=== PATIENT | male | born 1965 | race Caucasian/White ===

== ENCOUNTER 2018-03-05 13:46 | Inpatient (IN) | payer BC ==
[~2018-03-05] VITALS: Ht 190.5 cm; Wt 109.0 kg
[~2018-03-05 13:46] MED LIST: AMLODIPINE BESYL5 MG PO; FAMOTIDINE20 MG PO; LEVAQUIN250 MG PO; LISINOPRIL10 MG PO; PANTOPRAZOLE SO40 MG PO; SERTRALINE HCL50 MG PO; SODIUM BICARBO650 MG PO; TRICOR48 MG PO; ULTRAM50 MG PO; ZOLOFT50 MG PO
[2018-03-05 14:47] LABS: BASOPHILS # (AUTO) 0.1 (0.0-0.1); BASOPHILS % 1.4 % (0.0-1.0); EOSINOPHILS # (AUTO) 0.4 (0.0-0.4); EOSINOPHILS % 4.7 % (0.0-6.0); HEMATOCRIT 43.3 % (38.2-49.6); HEMOGLOBIN 15.9 g/dL (14.0-18.0); LYMPHOCYTES # (AUTO) 2.3 (1.0-3.2); LYMPHOCYTES % 25.6 % (18.0-39.1); MEAN CORPUSCULAR HEMOGLOBIN 34.9 pg (28-32); MEAN CORPUSCULAR HGB CONC 36.7 g/dL (31-35); MEAN CORPUSCULAR VOLUME 95.2 fL (81-99); MONOCYTES # (AUTO) 0.9 (0.2-0.8); MONOCYTES % 9.4 % (4.4-11.3); NEUTROPHILS # (AUTO) 5.3 (2.1-6.9); NEUTROPHILS % 58.1 % (38.7-80.0); PLATELET COUNT 183 x10e3/uL (140-360); RED BLOOD COUNT 4.55 x10e6/uL (4.3-5.7); RED CELL DISTRIBUTION WIDTH 13.2 % (11.7-14.4)
[2018-03-05 14:57] LABS: INR 1.05; PROTHROMBIN TIME 12.9 seconds (11.9-14.5)
[2018-03-05 14:58] LABS: PARTIAL THROMBOPLASTIN TIME 27.7 seconds (23.8-35.5)
[2018-03-05 15:10] LABS: ALBUMIN 3.9 g/dL (3.5-5.0); ALBUMIN/GLOBULIN RATIO 0.7 (0.8-2.0); ANION GAP 17.6 mmol/L (8-16); CALCIUM 9.7 mg/dL (8.4-10.2); CREATININE, SERUM 2.02 mg/dL (0.72-1.25); POTASSIUM 4.6 mmol/L (3.5-5.1)
[2018-03-05 15:16] LABS: CREATINE KINASE MB 3.6 ng/mL (0-5.0)
[2018-03-05] MEDS ORDERED: LABETALOL HCL 5 MG/ML 20ML VIAL IV STA (15:22)
--- NOTE | 2018-03-05 16:15 | Diagnostic Imaging Report ---
EXAM: XR CHEST 2 VIEWS DATE: 03/05/2018 2:22 PM INDICATION: Shortness of breath COMPARISON: None FINDINGS: Lines and Tubes: None Heart and Mediastinum: Heart upper limits of normal. Mild tortuosity descending thoracic aorta. Lungs and Pleura: Mild biapical scarring. Ill-defined opacity partially tears left heart border. Bones and Soft Tissues: No acute findings. IMPRESSION: 1. Ill-defined density left lung base likely pericardial fat better seen 05/21/[address] Signed by: Dr. Raul Kirby MD on 03/05/2018 4:12 PM
[2018-03-05] MEDS ORDERED: ASPIRIN 81 MG CHEW TAB PO ONE (17:00)
[2018-03-05] MEDS: METOPROLOL TARTRATE 50 MG TAB PO SCH (18:23)
[2018-03-05] MEDS: ENOXAPARIN 30 MG/0.3 ML SYR SC SCH (18:24)
[2018-03-05 20:00] VITALS: BP 129/85
[2018-03-05] MEDS: SODIUM BICARBONATE 8.4% 100 ML in DEXTROSE 5% 1,000 ML IV SCH (20:20)
[2018-03-05 21:00] VITALS: BP 129/85
--- NOTE | 2018-03-05 21:44 | Diagnostic Imaging Report ---
EXAM: CT CHEST WO DATE: 03/05/2018 6:17 PM INDICATION: Elevated blood pressure, shortness of breath COMPARISON: None TECHNIQUE: Multidetector CT scanning of the chest was performed. Coronal and sagittal multiplanar reformations were obtained. CT low dose techniques were utilized, as applicable. IV Contrast: 0 ml Isovue 370/300 FINDINGS: LUNGS AND PLEURA: Central airways are patent. Minimal bibasilar atelectasis and/or scarring. No consolidations or edema. No effusions or pneumothorax. HEART, MEDIASTINUM, VESSELS: Heart size is normal with prominent pericardial fat pads. Normal great vessel caliber. Trace atherosclerotic calcification. No pericardial effusion. No adenopathy. UPPER ABDOMEN: Unremarkable. MUSCULOSKELETAL: Scattered degenerative changes and mild anterior wedging of T8. IMPRESSION: No acute abnormality. Signed by: Dr Gisela Brown MD on 03/05/2018 9:41 PM
--- NOTE | 2018-03-05 22:40 | History and Physical ---
He is a 52-year-old male patient of mine, presented to the emergency room with a complaint of shortness of breath of 1-day duration. HISTORY OF PRESENT ILLNESS: Mr. Baron Gray is a 52-year-old male patient with no significant medical history as the patient has no significant continuous outpatient care. The patient had last seen me 2 years ago in . He has not had any regular care. The patient has presented today with a complaint of chest pain, shortness of breath and left-sided arm numbness and tingling and weakness and the patient was found to have hypertension also in the emergency room. The patient is not . PAST MEDICAL HISTORY: Hypertension. The patient had some kind of kidney problem, but no chronic kidney problems. ALLERGIES: Denies. SOCIAL HISTORY: The patient smokes and uses alcohol occasionally. FAMILY HISTORY: Hypertension, coronary artery disease. REVIEW OF SYSTEMS: Chest pain, shortness of breath on exertion and left arm numbness, tingling. No headache. No nausea, vomiting. No diarrhea. PHYSICAL EXAMINATION GENERAL: He is a middle-aged male patient, lying in his bed, not in any acute distress. VITAL SIGNS: Temperature 98, pulse rate 90, respiratory rate 20, blood pressure 160/95. HEENT: Normocephalic, atraumatic. No JVD. No lymphadenopathy. LUNGS: Bilateral equal air entry. No rales, no rhonchi. HEART: S1, S2. Regular. ABDOMEN: Soft. Bowel sounds are present. NEUROLOGICAL: No focal neurological deficit. LABORATORY EXAMINATION: The patient has very high protein and high globulin. ADMITTING IMPRESSION/DIAGNOSES 1. Atypical chest pain/chest pain syndrome. 2. Hypertension. 3. Acute renal insufficiency with creatinine of 2. ASSESSMENT AND PLAN: The patient was admitted with above diagnosis. Will do serial EKG, cardiac enzymes. Obtain CT chest and D-dimer level. Give patient Lovenox, IV fluids and metoprolol for blood pressure control and will obtain cardiology and renal consultation. Job#: [id number]
[2018-03-05 22:45] LABS: CREATINE KINASE MB 2.7 ng/mL (0-5.0)
[2018-03-06] VITALS (7 sets, daily range): BP systolic 123–132; BP diastolic 85–96
--- NOTE | 2018-03-06 02:04 | Consultation ---
DATE OF CONSULTATION: March 05, 2018 CARDIAC CONSULTATION REASON FOR THE CONSULTATION: Unstable angina over unstable coronary syndrome. HISTORY: This is a 52-year-old gentleman who is known with longstanding history of hypertension, hyperlipidemia and chronic renal insufficiency. In fact, patient in 2016 was admitted to this institution with chronic renal insufficiency, acidosis. Seen by renal service. He does have history of possible hepatitis C by having positive hepatitis C antibody. He does have chronic history of peripheral neuropathy. Patient works very hard. He is physically active; however, during activity or anything, he cannot breathe and he cannot perform what he is doing. This is becoming progressively worse over the last 2 to 3 months. Patient's activity has become very limited. Today, he had prolonged chest tightness, radiating to his arm with activity. He needed to stop what he is doing. He was worried. He came to the emergency room. First set of cardiac enzyme is normal. Cardiac consultation is obtained. On admission, his BUN was at 28, creatinine of 2.02 and bicarb of 16. Cardiac symptoms as per above. Progressively worse chest pressure, chest tightness and severe shortness of breath. REVIEW OF SYSTEMS CARDIAC: As per above. PULMONARY: As per above. No recent travel. No pleuritic chest pain. GI: No hematemesis. No melena. : No hematuria. No dysuria. MUSCULOSKELETAL: Aches and pain. NEUROLOGICAL: Severe peripheral neuropathy of the lower extremities. GENERAL: No fever. No chills. SOCIAL HISTORY: He is . He is a smoker. He in not alcohol drinker. He works in mechanics. PAST MEDICAL HISTORY 1. Acute tubular necrosis in 2016. 2. Appendectomy. 3. Lumbar spine surgery. 4. Right foot wart. 5. Peripheral neuropathy. 6. History of hepatitis C positive antibody. FAMILY HISTORY: Hypertension, diabetes mellitus and coronary artery disease in the family. PHYSICAL EXAMINATION VITALS: Height of 6 feet 3 inches, weight of 216 pounds. Blood pressure 140/100. Heart rate of 90. Respiratory rate of 18. Temperature 98 degrees Fahrenheit. HEENT: Pupils are reactive. NECK: No elevation of jugular venous pulsation. No bruit. CHEST: Clear to auscultation and percussion. HEART: PMI in 5th left intercostal space. Normal 1st and 2nd heart sounds. ABDOMEN: Soft with good bowel sounds. EXTREMITIES: No cyanosis. No clubbing. No edema. NEUROLOGIC: Tingling and numbness of the lower extremity. There are a few changes on the feet, mainly the right foot. HOME MEDICATIONS 1. Norvasc 2.5 mg a day. 2. TriCor 48 mg a day. 3. Lisinopril 20 mg a day. 4. Protonix 40 mg a day. 5. Zoloft 50 mg a day. ALLERGY: CODEINE. CURRENT LABORATORY DATA: White blood cell count of 9.1, hemoglobin 15.9, hematocrit 43%, platelet of 183,000. BUN of 28, creatinine of 2.02, bicarb of 16. PT of 11 seconds, PTT of 27 seconds. D-dimer of 0.54. IMPRESSION AND PLAN 1. Chest pain, very plausible to be angina, very typical symptoms with several risk factors. 2. Hypertension. 3. Hyperlipidemia. 4. Chronic renal insufficiency. 5. Metabolic acidosis. 6. Peripheral neuropathy. 7. History of hepatitis C antibiotic positive. Cardiac-an, plan for serial cardiac enzymes. I will start patient on IV fluid. Will start patient on aspirin. Beta rosa is good medication for the time being. Will schedule patient for nuclear stress test; however, if the cardiac enzymes are positive, will proceed directly with cardiac catheterization. All these discussed and explained to the patient. Questions are answered. Will follow patient's progression with you and would like to thank you for your kind referral. Job#: [id number] GERMÁN
[2018-03-06] MEDS: METOPROLOL TARTRATE 50 MG TAB PO SCH ×3 (05:07→21:20)
[2018-03-06 05:16] LABS: BASOPHILS # (AUTO) 0.1 (0.0-0.1); BASOPHILS % 1.3 % (0.0-1.0); EOSINOPHILS # (AUTO) 0.4 (0.0-0.4); EOSINOPHILS % 6.3 % (0.0-6.0); HEMATOCRIT 39.1 % (38.2-49.6); HEMOGLOBIN 14.4 g/dL (14.0-18.0); LYMPHOCYTES % 31.7 % (18.0-39.1); MEAN CORPUSCULAR HEMOGLOBIN 35.8 pg (28-32); MEAN CORPUSCULAR HGB CONC 36.8 g/dL (31-35); MEAN CORPUSCULAR VOLUME 97.3 fL (81-99); MONOCYTES # (AUTO) 0.8 (0.2-0.8); MONOCYTES % 12.8 % (4.4-11.3); NEUTROPHILS # (AUTO) 2.9 (2.1-6.9); NEUTROPHILS % 47.1 % (38.7-80.0); PLATELET COUNT 146 x10e3/uL (140-360); RED BLOOD COUNT 4.02 x10e6/uL (4.3-5.7); RED CELL DISTRIBUTION WIDTH 13.2 % (11.7-14.4)
[2018-03-06 06:12] LABS: ALBUMIN 3.1 g/dL (3.5-5.0); ALBUMIN/GLOBULIN RATIO 0.6 (0.8-2.0); ANION GAP 18.3 mmol/L (8-16); CALCIUM 9.4 mg/dL (8.4-10.2); CREATININE, SERUM 1.72 mg/dL (0.72-1.25); POTASSIUM 4.3 mmol/L (3.5-5.1)
[2018-03-06 06:14] LABS: CHOL/HDL RATIO 14.5 (3.9-4.7); CHOLESTEROL 304 MD/DL (0-199); HDL CHOLESTEROL 21 MG/DL (40-60)
[2018-03-06 06:23] LABS: TRIGLYCERIDES 1983 MG/DL (0-149)
[2018-03-06] MEDS: SODIUM BICARBONATE 8.4% 100 ML in DEXTROSE 5% 1,000 ML IV SCH ×2 (06:28→20:54)
[2018-03-06 06:33] LABS: THYROID STIMULATING HORMONE 2.89 uIU/mL (0.350-4.940)
[2018-03-06 06:38] LABS: CREATINE KINASE MB 1.6 ng/mL (0-5.0)
[2018-03-06] MEDS ORDERED: REGADENOSON 0.4 MG/5 ML SYR IV ONE (10:24)
[2018-03-06] MEDS ORDERED: CLOPIDOGREL BISULFATE 75 MG TAB PO ONE (12:45)
--- NOTE | 2018-03-06 15:28 | Cardiology Report ---
DATE OF STUDY: LEXISCAN NUCLEAR CARDIAC STRESS TEST TECHNICAL DETAILS: This is a resting-stress protocol. For the resting images, a total of 11 millicuries of Myoview given. Half an hour after that proper SPECT imaging and scanning were done. For the stress images, patient received 0.4 mg of Lexiscan, followed by the injection of 33 millicuries of Myoview. Half an hour after that repeat scanning and proper SPECT imaging were done. RESULTS A. Hemodynamics: patient tolerated Lexiscan infusion with no complication. Heart rate remained stable in the 70s/ min. Blood pressure at 110/80. B. Nuclear imaging 1. Myocardial perfusion: A. Resting images showed smooth distribution of the isotope in all segments except for part of the anterior wall. B. Stress images again showed almost similar finding with a smooth distribution of isotopes in all segments except part in the anterior wall. 2. Heart volume: End diastolic volume 111 ml. and end systolic volume of 56 ml. Left ventricular ejection fraction of 50%. 3. Segmental wall motion. The left ventricle appears to be normal in size and systole and diastole with normal contractility. Ejection fraction of 50%. IMPRESSION 1. Abnormal nuclear stress test showing mixed ischemic and more of a scar in the anterior segments. 2. Relatively preserved left ventricular systolic function at 50%. RECOMMENDATION: Case to be discussed with the patient. We will try medical therapy unless if patient continues to have symptoms. However, we will revisit with the patient and discuss the results and make a decision. Job#: [id number] VAS MTDDana
[2018-03-06] MEDS ORDERED: ENOXAPARIN 30 MG/0.3 ML SYR SC SCH (17:00)
[2018-03-06] MEDS ORDERED: ACETYLCYSTEINE 20% INHAL SOLN 30 ML VIAL PO SCH (18:00)
[2018-03-06] MEDS: ENOXAPARIN 30 MG/0.3 ML SYR SC SCH (18:22)
[2018-03-06] MEDS: ACETYLCYSTEINE 20% INHAL SOLN 30 ML VIAL PO SCH ×2 (18:22→23:30)
--- NOTE | 2018-03-06 19:48 | Consultation ---
DATE OF CONSULTATION: March 06, 2018 HISTORY OF PRESENT ILLNESS: A 52-year-old gentleman who is currently admitted here at [facility]. Renal has been consulted by Dr. Lopez for management of kidney failure. Patient claims he has had kidney problems in the past. Never saw a kidney doctor in the office. Has history of hypertension. Has been relatively noncompliant. Takes about 5 to 5 Aleve a day. He used to take "a whole lot more" 2-3 years ago, but he has cut down to 3 pills a day now. Previously, he said he did cocaine and was "addicted to Soma and Lorcet", but for the last 2 years he has stopped taking any of those medications as well as cocaine and just takes Aleve. He also takes 2 Aleve PM to sleep. He was found to have a creatinine of 2.0 with a bicarbonate of 16. This was on March 05. The patient had a total protein of 8.7 with a globulin 5.6. Serum urine protein electrophoresis has been sent. Dr. Richter has seen the patient for chest pain and apparently patient is scheduled for cardiac cath tomorrow. I discussed with patient about the spectrum of contrast-induced nephropathy ranging from mild to moderate renal dysfunction to severe kidney failure requiring temporary or permanent dialysis. Patient understands all the risks and wants to proceed with cardiac cath. He is also found to have significantly elevated triglyceride of 193. Cholesterol 304. He smokes about a pack and a half a day, and drinks twice a week, he says. CURRENT MEDICATIONS: Patient is on Mucomyst. He is on IV bicarbonate drip and Plavix, enoxaparin, metoprolol. For dose schedule please see MAR. SOCIAL HISTORY: As above. PHYSICAL EXAMINATION: GENERAL: Patient found to be awake, alert and lying supine. No apparent distress. VITALS: Blood pressure of 130/60, pulse rate 80. Respiratory rate 14. HEAD AND NECK: Cornea clear. Oral mucosa moist. Neck veins flat. LUNGS: Harsh vesicular breath sounds, relatively clear. HEART: S1 and S2 audible. ABDOMEN: Otherwise soft and nontender but is distended. LOWER EXTREMITY EXAMINATION: Shows chronic skin changes. No edema. IMPRESSION: 1. Distal renal tubular acidosis, acute kidney injury, possibly acute tubular necrosis, underlying CKD III. I suspect underlying chronic kidney disease stage III with a prerenal component. 2. History of tobacco addiction. 3. Chronic NSAID use. I 4. Mild hyponatremia. 5. TSH within normal limits. CK of 102 and repeat 89. 6. Serum urine protein electrophoresis pending for the globulin gap. Calcium level 9.4. 7. Volume status stable. 8. Underlying hypertension. 9. 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 PLAN: Will order workup including urine protein creatinine ratio, urinalysis, kidney ultrasound. Will await serum and urine protein electrophoresis. Further recommendations to follow. Job#: [id number]
[2018-03-06 23:59] LABS: BACTERIA,URINE FEW /HPF; BILIRUBIN,URINE NEGATIVE (NEGATIVE); CLARITY,URINE CLEAR (CLEAR); COLOR,URINE YELLOW (YELLOW); KETONES,URINE NEGATIVE (NEGATIVE); LEUKOCYTE ESTERASE ,URINE NEGATIVE (NEGATIVE); NITRITE,URINE NEGATIVE (NEGATIVE); PROTEIN,URINE DIPSTICK NEGATIVE (NEGATIVE); RBC,URINE 0-5 /HPF (0-5); URINE UROBILINOGEN 0.2 mg/dL (0.2 - 1); WBC,URINE (MAN) 0-5 /HPF (0-5)
[2018-03-07] VITALS (16 sets, daily range): BP systolic 116–142; BP diastolic 76–92
[2018-03-07 00:12] LABS: TOTAL PROTEIN, URINE < 6.8 mg/dL (1-14)
[2018-03-07 02:01] LABS: CREATININE,URINE RANDOM 58.17 mg/dL (63-166)
[2018-03-07] MEDS: ACETYLCYSTEINE 20% INHAL SOLN 30 ML VIAL PO SCH ×2 (05:28→12:00)
[2018-03-07 05:40] LABS: BASOPHILS # (AUTO) 0.1 (0.0-0.1); BASOPHILS % 1.3 % (0.0-1.0); EOSINOPHILS # (AUTO) 0.4 (0.0-0.4); EOSINOPHILS % 6.6 % (0.0-6.0); HEMOGLOBIN 13.6 g/dL (14.0-18.0); LYMPHOCYTES # (AUTO) 2.2 (1.0-3.2); LYMPHOCYTES % 36.7 % (18.0-39.1); MEAN CORPUSCULAR HGB CONC 35.8 g/dL (31-35); MONOCYTES # (AUTO) 0.7 (0.2-0.8); MONOCYTES % 11.1 % (4.4-11.3); NEUTROPHILS # (AUTO) 2.6 (2.1-6.9); NEUTROPHILS % 43.6 % (38.7-80.0); PLATELET COUNT 137 x10e3/uL (140-360); RED CELL DISTRIBUTION WIDTH 12.9 % (11.7-14.4)
[2018-03-07] MEDS: SODIUM BICARBONATE 8.4% 100 ML in DEXTROSE 5% 1,000 ML IV SCH ×3 (06:03→23:22)
[2018-03-07 06:33] LABS: ALBUMIN 3.4 g/dL (3.5-5.0); ALBUMIN/GLOBULIN RATIO 0.8 (0.8-2.0); ANION GAP 14.5 mmol/L (8-16); CALCIUM 9.2 mg/dL (8.4-10.2); CREATININE, SERUM 1.62 mg/dL (0.72-1.25); POTASSIUM 4.5 mmol/L (3.5-5.1)
[2018-03-07] MEDS: METOPROLOL TARTRATE 50 MG TAB PO SCH ×2 (09:00→21:39)
[2018-03-07] MEDS ORDERED: LIDOCAINE HCL 2% LOCAL 20 ML VIAL ONE (10:29)
[2018-03-07] MEDS ORDERED: MIDAZOLAM HCL 2 MG/2 ML VIAL ONE (10:29)
[2018-03-07] MEDS ORDERED: FENTANYL CITRATE/PF 100MCG/2 ML INJ ONE (10:29)
[2018-03-07] MEDS ORDERED: HEPARIN SOD/SOD CHLORIDE 2,000 ML ONE (10:29)
[2018-03-07] MEDS ORDERED: IOPAMIDOL 370 MG/ML 200 ML INFUS..BTL INJ ONE (10:30)
[2018-03-07] MEDS ORDERED: SODIUM CHLORIDE 0.9% 1000ML 1,000 ML ONE (10:30)
--- NOTE | 2018-03-07 14:08 | Operative Report ---
DATE OF PROCEDURE: March 07, 2018 TITLE OF PROCEDURE: Left cardiac catheterization. INDICATIONS: Please refer to dictated notes. TECHNICAL DETAILS: After the usual sterile preparation and draping procedure, intravenous Versed and fentanyl given for sedation and local Xylocaine for anesthesia, a 4-Serbian sheath established in place, Elsie left 4 and RC catheter to engage the coronaries. Pigtail for left ventriculogram. At the end of the procedure, sheath was removed. Hemostasis was achieved manually. No complication. No blood loss. RESULTS A. Coronary angiogram. 1. Left main: Free of disease. 2. LAD: 40% mid LAD long lesion. 3. Circumflex coronary artery: Proximal 40% lesion giving large 1st obtuse marginal. 4. Right coronary artery: 40% proximal lesion. B. Hemodynamics: Aorta pressure 120/80. LV pressure 120/18. C. Left ventriculogram in the right anterior oblique view showed mild hypokinesis, ejection fraction at almost 50%. IMPRESSION 1. Mild coronary artery disease. 2. Left ventricular ejection fraction 50%. COMPLICATIONS: None. BLOOD LOSS: None. RECOMMENDATIONS: Medical therapy. Job#: [id number]
[2018-03-08 01:30] VITALS: BP 141/84
[2018-03-08 05:18] LABS: BASOPHILS # (AUTO) 0.1 (0.0-0.1); BASOPHILS % 1.2 % (0.0-1.0); EOSINOPHILS # (AUTO) 0.5 (0.0-0.4); EOSINOPHILS % 7.2 % (0.0-6.0); HEMATOCRIT 36.5 % (38.2-49.6); HEMOGLOBIN 14.7 g/dL (14.0-18.0); LYMPHOCYTES # (AUTO) 2.7 (1.0-3.2); LYMPHOCYTES % 40.3 % (18.0-39.1); MEAN CORPUSCULAR HEMOGLOBIN 38.6 pg (28-32); MEAN CORPUSCULAR HGB CONC 40.3 g/dL (31-35); MEAN CORPUSCULAR VOLUME 95.8 fL (81-99); MONOCYTES # (AUTO) 0.6 (0.2-0.8); MONOCYTES % 9.7 % (4.4-11.3); NEUTROPHILS # (AUTO) 2.7 (2.1-6.9); NEUTROPHILS % 40.8 % (38.7-80.0); PLATELET COUNT 154 x10e3/uL (140-360); RED BLOOD COUNT 3.81 x10e6/uL (4.3-5.7); RED CELL DISTRIBUTION WIDTH 12.8 % (11.7-14.4)
[2018-03-08 05:35] LABS: ALBUMIN 3.1 g/dL (3.5-5.0); ALBUMIN/GLOBULIN RATIO 0.5 (0.8-2.0); CREATININE, SERUM 1.6 mg/dL (0.72-1.25)
[2018-03-08 06:43] VITALS: BP 142/91
[2018-03-08 08:00] VITALS: BP 142/91
--- NOTE | 2018-03-08 08:20 | Diagnostic Imaging Report ---
EXAM: Renal Ultrasound INDICATION: \S\amie \[id number] \[id number] COMPARISON: CT abdomen and pelvis without contrast 05/21/2016 TECHNIQUE: Transverse and longitudinal images of the kidneys and bladder were obtained. FINDINGS: Right Kidney: Size: 12.3 cm, right renal cortex 1.9 cm. Appearance: Normal echogenicity. Collecting system: No hydronephrosis Stones: None Cyst/Mass: None Left Kidney: Size: 11.3 cm, left renal cortex 1.3 cm. Appearance: Normal echogenicity. Collecting system: No hydronephrosis Stones: None Cyst/Mass: None Bladder: No focal lesions. The right ureteral jet is identified. No wall thickening. Prostate: 2.6 x 1.8 x 2.3 cm (estimated volume 5.7 cc) IMPRESSION: 1. Unremarkable exam. Signed by: Dr. Josué Valenzuela M.D. on 03/08/2018 8:17 AM
[2018-03-08 08:25] VITALS: BP 138/87
[2018-03-08] MEDS: METOPROLOL TARTRATE 50 MG TAB PO SCH (09:00)
[2018-03-08] MEDS: SODIUM BICARBONATE 8.4% 100 ML in DEXTROSE 5% 1,000 ML IV SCH (09:21)
[2018-03-08] MEDS ORDERED: SODIUM BICARBO650 MG PO (12:04)
[2018-03-08 12:20] VITALS: BP 139/81
[2018-03-08 16:01] VITALS: BP 139/88
--- NOTE | 2018-03-09 01:13 | Discharge Summary ---
AUDIO CUTTING IN AND OUT IN MULTIPLE PORTIONS OF THE REPORT This patient is a 52-year-old male, patient presented with the complaint of shortness of breath and chest pain. IMPRESSIONS/DIAGNOSES 1. Chest pain syndrome. 2. Hypertension. 3. Acute renal failure. 4. Normal anion gap metabolic acidosis. 5. Type-2 distal renal tubular necrosis. HOSPITAL COURSE: Patient was admitted with the above diagnosis, Patient was started on the metoprolol. Patient had nuclear stress test was done, which was abnormal. It showed small defect The patient was taken for the heart cath. Patient found to have 50% mid LAD lesion. Patient's echocardiogram was ejection fraction was 50%-55% Patient has a 40% mid LAD long lesion and right coronary also has a 40% proximal and circumflex has a proximal 40% lesion. Patient has a high liver function tests and patient has increased globulin in the blood, so multiple myeloma diagnosis was entertained. Renal consult was done. Patient electrophoresis results are pending. Patient's cholesterol is 304 and triglyceride was 1984. Patient will be discharged home on a sodium bicarbonate tablet. toprol xl for the blood pressure and Wellbutrin for depression, and to stop smoking. disch diag CAD ANGINA ARF,CKD DISTAL RTA Job#: [id number] CQ MTDDana
[2018-03-10 18:10] LABS: ALPHA 2 GLOBULIN URINE PEP 14.9 % (.)
== END 2018-03-08 16:12 | disposition home or self-care (01) | DRG 286 ==
LOC: ER 13:54 → INTOOBSV 18:12 → ERHOLD 18:12 → OBSVTOIN 18:12 → MED/SURG2 18:36 → OBSVTOIN 03-07 16:44
PROVIDERS: ADMIT Internal Medicine; ATTEND Internal Medicine
PROC: 4A023N7 Measurement of Cardiac Sampling and Pressure, Left Heart, Percutaneous Approach (ICD-10-PCS; principal; 2018-03-07)
PROC: B2111ZZ Fluoroscopy of Multiple Coronary Arteries using Low Osmolar Contrast (ICD-10-PCS; 2018-03-07)
PROC: B2151ZZ Fluoroscopy of Left Heart using Low Osmolar Contrast (ICD-10-PCS; 2018-03-07)
DX: I25.110 Atherosclerotic heart disease of native coronary artery with unstable angina pectoris (principal); N17.0 Acute kidney failure with tubular necrosis; E87.2 Acidosis; E87.1 Hypo-osmolality and hyponatremia; I12.9 Hypertensive chronic kidney disease with stage 1 through stage 4 chronic kidney disease, or unspecified chronic kidney disease; F32.9 Major depressive disorder, single episode, unspecified; B07.0 Plantar wart; Z91.19 Patient's noncompliance with other medical treatment and regimen; F14.11 Cocaine abuse, in remission; F19.21 Other psychoactive substance dependence, in remission; Z79.1 Long term (current) use of non-steroidal anti-inflammatories (NSAID); N14.0 Analgesic nephropathy; E11.22 Type 2 diabetes mellitus with diabetic chronic kidney disease; N18.3 Chronic kidney disease, stage 3 (moderate); Z87.891 Personal history of nicotine dependence; Z79.4 Long term (current) use of insulin; Z86.19 Personal history of other infectious and parasitic diseases
CPT/HCPCS: 36415; 71046; 71250; 76770; 78452; 80053; 80061; 81001; 82550; 82553; 82570; 84156; 84165; 84166; 84443; 84484; 85025; 85379; 85610; 85730; 93005; 93017; 93306; 93458; 99284; A9502; C1766; G0378; J1650; J2001; J2250; J7030; J7070; Q9967

== ENCOUNTER 2020-10-12 13:01 | Emergency (ER) | payer BC ==
[~2020-10-12] VITALS: Ht 190.5 cm; Wt 108.9 kg
[2020-10-12] MEDS ORDERED: CIPRO500 MG PO (16:17)
[2020-10-12] MEDS ORDERED: MOTRIN200 MG PO (16:17)
[2020-10-12 16:37] VITALS: BP 136/98
== END 2020-10-12 16:40 | disposition home or self-care (01) ==
LOC: ER 13:34
DX: N50.812 Left testicular pain (principal); N45.1 Epididymitis; I10 Essential (primary) hypertension; E78.5 Hyperlipidemia, unspecified
CPT/HCPCS: 76870; 93976; 99283

== ENCOUNTER 2020-11-24 08:58 | Inpatient (IN) | payer BC ==
[~2020-11-24] VITALS: Ht 190.5 cm; Wt 102.1 kg
[~2020-11-24 08:58] MED LIST changes: +CIPRO500 MG PO; +MOTRIN200 MG PO
[2020-11-24] MEDS ORDERED: ASPIRIN 81 MG CHEW TAB PO ONE ×2 (09:15→11:15)
[2020-11-24 09:20] LABS: BASOPHILS # (AUTO) 0.1 (0.0-0.1); BASOPHILS % 1.3 % (0.0-1.0); EOSINOPHILS # (AUTO) 0.4 (0.0-0.4); EOSINOPHILS % 4.6 % (0.0-6.0); HEMATOCRIT 39.6 % (38.2-49.6); HEMOGLOBIN 13.3 g/dL (14.0-18.0); LYMPHOCYTES # (AUTO) 1.7 (1.0-3.2); LYMPHOCYTES % 19.5 % (18.0-39.1); MEAN CORPUSCULAR HEMOGLOBIN 32.2 pg (28-32); MEAN CORPUSCULAR HGB CONC 33.6 g/dL (31-35); MEAN CORPUSCULAR VOLUME 95.9 fL (81-99); MONOCYTES # (AUTO) 0.8 (0.2-0.8); MONOCYTES % 8.9 % (4.4-11.3); NEUTROPHILS # (AUTO) 5.6 (2.1-6.9); NEUTROPHILS % 64.4 % (38.7-80.0); PLATELET COUNT 223 x10e3/uL (140-360); RED BLOOD COUNT 4.13 x10e6/uL (4.3-5.7); RED CELL DISTRIBUTION WIDTH 13.5 % (11.7-14.4)
[2020-11-24 09:47] LABS: ALBUMIN 3.2 g/dL (3.5-5.0); ALBUMIN/GLOBULIN RATIO 0.7 (0.8-2.0); ANION GAP 16.9 mmol/L (8-16); CALCIUM 8.8 mg/dL (8.4-10.2); CREATININE, SERUM 1.67 mg/dL (0.72-1.25); POTASSIUM 4.9 mmol/L (3.5-5.1)
[2020-11-24 09:49] LABS: SALICYLATE < 5.0 mg/dL (0-30)
[2020-11-24 09:52] LABS: INR 0.9; PROTHROMBIN TIME 12.7 seconds (11.9-14.5)
[2020-11-24 09:53] LABS: CREATINE KINASE MB 3.4 ng/mL (0-5.0)
[2020-11-24] MEDS ORDERED: MORPHINE SULFATE INJ 4 MG/ML INJ 1ML IV STA (09:55)
[2020-11-24] MEDS ORDERED: ONDANSETRON HCL INJ 2MG/ML 2ML 2 MG/ML VIAL IV STA (09:55)
[2020-11-24 09:59] LABS: ABG HCO3 20 mmol/L (22-26); ABG PCO2 36 mmHg (35-45); ABG PH 7.36 (7.35-7.45); ABG PO2 85 mmHg (80-105); ABG TCO2 21
[2020-11-24] MEDS ORDERED: HYDRALAZINE HCL 20 MG/ML VIAL IV STA (10:35)
[2020-11-24] MEDS ORDERED: MORPHINE SULFATE INJ 4 MG/ML INJ 1ML IV PRN ×2 (10:45→14:45)
[2020-11-24] MEDS ORDERED: ONDANSETRON HCL INJ 2MG/ML 2ML 2 MG/ML VIAL IV PRN (10:45)
[2020-11-24] MEDS: SODIUM CHLORIDE 0.9% 1000ML 1,000 ML IV SCH ×2 (11:10→21:07)
[2020-11-24] MEDS ORDERED: HYDRALAZINE HCL 20 MG/ML VIAL IV PRN ×2 (11:15→11:45)
[2020-11-24] MEDS ORDERED: SODIUM CHLORIDE 0.9% 50ML 50 ML ONE (11:35)
[2020-11-24] MEDS ORDERED: IOPAMIDOL 370 MG/ML 200 ML INFUS..BTL INJ ONE (11:36)
[2020-11-24] MEDS ORDERED: DOCUSATE SODIUM 100 MG CAP PO PRN (11:45)
[2020-11-24] MEDS ORDERED: POTASSIUM CHLORIDE 20 MEQ TAB CR PO PRN (11:45)
[2020-11-24] MEDS ORDERED: DIPHENHYDRAMINE HCL 25 MG CAP PO PRN (11:45)
[2020-11-24] MEDS ORDERED: DEXTROSE 50% SYRINGE 50 ML IV PRN (11:45)
[2020-11-24] MEDS ORDERED: ACETAMINOPHEN 325 MG TAB PO PRN (11:45)
[2020-11-24 11:49] LABS: CREATINE KINASE MB 3.3 ng/mL (0-5.0)
[2020-11-24] MEDS ORDERED: MIDODRINE HCL 5 MG TABLET PO SCH (12:00)
[2020-11-24] MEDS ORDERED: MIDODRINE 2.5 MG TAB PO SCH (12:00)
[2020-11-24 12:01] LABS: AMYLASE 81 U/L (25-125); LIPASE 33 U/L (8-78)
[2020-11-24] MEDS: NIFEDIPINE CR 30 MG TAB PO SCH (12:06)
[2020-11-24] MEDS ORDERED: NITROGLYCERIN 0.4 MG SUBL SL PRN (12:15)
[2020-11-24] MEDS ORDERED: NITROGLYCERIN 2% OINT 1 GM PKT TOP STA (13:36)
[2020-11-24] MEDS: MORPHINE SULFATE INJ 2 MG/ML SYR IV PRN ×2 (13:56→21:17)
[2020-11-24] MEDS: ENOXAPARIN SOD INJ 40 MG/0.4 ML SYR SC SCH (17:00)
[2020-11-24] MEDS: CARVEDILOL 3.125 MG TAB PO SCH (18:33)
[2020-11-24 20:19] VITALS: BP 151/92
[2020-11-24 20:20] VITALS: BP 151/92
[2020-11-24] MEDS ORDERED: MELATONIN 5 MG TABLET PO PRN (21:00)
[2020-11-24] MEDS: ONDANSETRON HCL INJ 2MG/ML 2ML 2 MG/ML VIAL IV PRN (21:16)
[2020-11-24 22:00] VITALS: BP 151/92
[2020-11-24 23:23] VITALS: BP 144/103
[2020-11-25] VITALS (7 sets, daily range): BP systolic 134–147; BP diastolic 86–98
[2020-11-25] MEDS: SODIUM CHLORIDE 0.9% 1000ML 1,000 ML IV SCH ×3 (00:20→14:30)
[2020-11-25 03:59] LABS: CREATINE KINASE MB 2.9 ng/mL (0-5.0)
[2020-11-25] MEDS: ONDANSETRON HCL INJ 2MG/ML 2ML 2 MG/ML VIAL IV PRN ×2 (04:30→09:05)
[2020-11-25] MEDS: MORPHINE SULFATE INJ 2 MG/ML SYR IV PRN ×2 (04:30→09:01)
[2020-11-25 04:47] LABS: BASOPHILS # (AUTO) 0.1 (0.0-0.1); BASOPHILS % 1.1 % (0.0-1.0); EOSINOPHILS # (AUTO) 0.4 (0.0-0.4); EOSINOPHILS % 4.3 % (0.0-6.0); HEMATOCRIT 37.4 % (38.2-49.6); HEMOGLOBIN 12.6 g/dL (14.0-18.0); LYMPHOCYTES # (AUTO) 1.8 (1.0-3.2); LYMPHOCYTES % 19.8 % (18.0-39.1); MEAN CORPUSCULAR HEMOGLOBIN 32.5 pg (28-32); MEAN CORPUSCULAR HGB CONC 33.7 g/dL (31-35); MEAN CORPUSCULAR VOLUME 96.4 fL (81-99); MONOCYTES # (AUTO) 0.8 (0.2-0.8); MONOCYTES % 9.2 % (4.4-11.3); NEUTROPHILS # (AUTO) 5.8 (2.1-6.9); NEUTROPHILS % 64.3 % (38.7-80.0); PLATELET COUNT 220 x10e3/uL (140-360); RED BLOOD COUNT 3.88 x10e6/uL (4.3-5.7); RED CELL DISTRIBUTION WIDTH 13.7 % (11.7-14.4)
[2020-11-25 05:03] LABS: ALBUMIN/GLOBULIN RATIO 0.7 (0.8-2.0); ANION GAP 14.6 mmol/L (8-16); CREATININE, SERUM 1.51 mg/dL (0.72-1.25); POTASSIUM 4.6 mmol/L (3.5-5.1)
[2020-11-25 05:39] LABS: CHOLESTEROL 192 MD/DL (0-199); HDL CHOLESTEROL 24 MG/DL (40-60); MAGNESIUM 1.7 MG/DL (1.3-2.1); PHOSPHORUS 3.1 MG/DL (2.3-4.7); TRIGLYCERIDES 441 MG/DL (0-149)
[2020-11-25 05:59] LABS: THYROID STIMULATING HORMONE 3.314 uIU/mL (0.350-4.940)
[2020-11-25] MEDS ORDERED: PANTOPRAZOLE SOD 40 MG TABEC PO SCH (07:30)
[2020-11-25] MEDS: CARVEDILOL 3.125 MG TAB PO SCH ×2 (09:04→16:27)
[2020-11-25] MEDS: NIFEDIPINE CR 30 MG TAB PO SCH (09:05)
[2020-11-25] MEDS: PANTOPRAZOLE SOD 40 MG TABEC PO SCH ×2 (11:30→16:27)
[2020-11-25] MEDS: SUCRALFATE 1 GM/10 ML SUSP NG SCH ×3 (11:42→21:00)
[2020-11-25] MEDS: HYDROCODONE/APAP 5MG-325MG TAB PO PRN ×2 (11:43→18:16)
[2020-11-25] MEDS: ENOXAPARIN SOD INJ 40 MG/0.4 ML SYR SC SCH (16:27)
[2020-11-26] VITALS (8 sets, daily range): BP systolic 116–147; BP diastolic 77–95
[2020-11-26] MEDS: HYDROCODONE/APAP 5MG-325MG TAB PO PRN ×3 (00:20→19:20)
[2020-11-26] MEDS: SODIUM CHLORIDE 0.9% 1000ML 1,000 ML IV SCH ×2 (03:52→18:11)
[2020-11-26 05:00] LABS: BASOPHILS # (AUTO) 0.1 (0.0-0.1); EOSINOPHILS # (AUTO) 0.3 (0.0-0.4); EOSINOPHILS % 4.2 % (0.0-6.0); HEMATOCRIT 36.6 % (38.2-49.6); HEMOGLOBIN 12.3 g/dL (14.0-18.0); LYMPHOCYTES # (AUTO) 2.3 (1.0-3.2); LYMPHOCYTES % 28.7 % (18.0-39.1); MEAN CORPUSCULAR HEMOGLOBIN 32.3 pg (28-32); MEAN CORPUSCULAR HGB CONC 33.6 g/dL (31-35); MEAN CORPUSCULAR VOLUME 96.1 fL (81-99); MONOCYTES # (AUTO) 0.7 (0.2-0.8); NEUTROPHILS # (AUTO) 4.5 (2.1-6.9); NEUTROPHILS % 55.3 % (38.7-80.0); PLATELET COUNT 235 x10e3/uL (140-360); RED BLOOD COUNT 3.81 x10e6/uL (4.3-5.7); RED CELL DISTRIBUTION WIDTH 13.2 % (11.7-14.4)
[2020-11-26 05:20] LABS: ANION GAP 12.8 mmol/L (8-16); CREATININE, SERUM 1.5 mg/dL (0.72-1.25); POTASSIUM 4.8 mmol/L (3.5-5.1)
[2020-11-26] MEDS: PANTOPRAZOLE SOD 40 MG TABEC PO SCH ×2 (07:30→16:47)
[2020-11-26] MEDS: SUCRALFATE 1 GM/10 ML SUSP NG SCH ×6 (07:30→20:36)
[2020-11-26] MEDS: NIFEDIPINE CR 30 MG TAB PO SCH (07:34)
[2020-11-26] MEDS: CARVEDILOL 3.125 MG TAB PO SCH ×2 (07:34→16:48)
[2020-11-26] MEDS ORDERED: LIDOCAINE HCL 2% LOCAL INJ 5 ML SDV VIAL INJ ONE (13:21)
[2020-11-26] MEDS ORDERED: PROPOFOL IV EMULSION 10 MG/ML 20 ML VIAL ONE (13:21)
[2020-11-26] MEDS ORDERED: FENTANYL CITRATE/PF 100MCG/2 ML INJ ONE (13:24)
[2020-11-26] MEDS: ENOXAPARIN SOD INJ 40 MG/0.4 ML SYR SC SCH (16:48)
[2020-11-27] VITALS: BP 138/90
[2020-11-27 04:00] VITALS: BP 139/91
[2020-11-27] MEDS: SUCRALFATE 1 GM/10 ML SUSP NG SCH ×2 (08:00→11:08)
[2020-11-27] MEDS: SODIUM CHLORIDE 0.9% 1000ML 1,000 ML IV SCH (08:00)
[2020-11-27] MEDS: PANTOPRAZOLE SOD 40 MG TABEC PO SCH (08:00)
[2020-11-27] MEDS: CARVEDILOL 3.125 MG TAB PO SCH (08:00)
[2020-11-27] MEDS: NIFEDIPINE CR 30 MG TAB PO SCH (08:00)
[2020-11-27 08:10] VITALS: BP 142/81
[2020-11-27 08:15] VITALS: BP 142/81
[2020-11-27] MEDS: HYDROCODONE/APAP 5MG-325MG TAB PO PRN (11:09)
[2020-11-27 11:34] VITALS: BP 138/94
== END 2020-11-27 13:30 | disposition home or self-care (01) | DRG 383 ==
LOC: ER 09:52 → ERHOLD 10:37 → MED/SURG 20:07 → OBSVTOIN 11-27 09:42
PROVIDERS: ADMIT Internal Medicine; ATTEND Internal Medicine
PROC: 0DB78ZX Excision of Stomach, Pylorus, Via Natural or Artificial Opening Endoscopic, Diagnostic (ICD-10-PCS; 2020-11-26)
PROC: 0DB68ZX Excision of Stomach, Via Natural or Artificial Opening Endoscopic, Diagnostic (ICD-10-PCS; 2020-11-26)
PROC: 0DB78ZX Excision of Stomach, Pylorus, Via Natural or Artificial Opening Endoscopic, Diagnostic (ICD-10-PCS; 2020-11-26)
PROC: 0DB68ZX Excision of Stomach, Via Natural or Artificial Opening Endoscopic, Diagnostic (ICD-10-PCS; principal; 2020-11-26 13:00)
DX: K25.9 Gastric ulcer, unspecified as acute or chronic, without hemorrhage or perforation (principal); N17.0 Acute kidney failure with tubular necrosis; I25.10 Atherosclerotic heart disease of native coronary artery without angina pectoris; E11.42 Type 2 diabetes mellitus with diabetic polyneuropathy; F17.210 Nicotine dependence, cigarettes, uncomplicated; N25.89 Other disorders resulting from impaired renal tubular function; Z86.19 Personal history of other infectious and parasitic diseases; G89.29 Other chronic pain; K20.90 Esophagitis, unspecified without bleeding; K29.70 Gastritis, unspecified, without bleeding; R07.9 Chest pain, unspecified; F17.200 Nicotine dependence, unspecified, uncomplicated; E78.00 Pure hypercholesterolemia, unspecified; E11.40 Type 2 diabetes mellitus with diabetic neuropathy, unspecified; Z79.1 Long term (current) use of non-steroidal anti-inflammatories (NSAID)
CPT/HCPCS: 36415; 36600; 43239; 71045; 71275; 74174; 80048; 80053; 80061; 80329; 82150; 82550; 82553; 82805; 83036; 83690; 83735; 83880; 84100; 84443; 84484; 85025; 85379; 85610; 88305; 88312; 93005; 93306; 99284; G0378; J0360; J1650; J2001; J2270; J2405; J3010; J7030; Q9967; U0002

== ENCOUNTER 2021-01-16 09:58 | Emergency (ER) | payer BC ==
[~2021-01-16] VITALS: Ht 190.5 cm; Wt 102.1 kg
[2021-01-16] MEDS ORDERED: DONNATAL/LIDOCAINE/MAALOX 30 ML SUSP PO ONE (10:30)
[2021-01-16] MEDS ORDERED: FAMOTIDINE 20 MG/2 ML VIAL IV STA (10:30)
[2021-01-16 10:52] LABS: BASOPHILS # (AUTO) 0.1 (0.0-0.1); BASOPHILS % 0.5 % (0.0-1.0); EOSINOPHILS # (AUTO) 0.1 (0.0-0.4); EOSINOPHILS % 0.9 % (0.0-6.0); HEMATOCRIT 39.6 % (38.2-49.6); HEMOGLOBIN 13.5 g/dL (14.0-18.0); LYMPHOCYTES # (AUTO) 1.7 (1.0-3.2); MEAN CORPUSCULAR HEMOGLOBIN 32.5 pg (28-32); MEAN CORPUSCULAR HGB CONC 34.1 g/dL (31-35); MEAN CORPUSCULAR VOLUME 95.4 fL (81-99); MONOCYTES # (AUTO) 1.5 (0.2-0.8); MONOCYTES % 12.9 % (4.4-11.3); NEUTROPHILS # (AUTO) 8.1 (2.1-6.9); NEUTROPHILS % 70.3 % (38.7-80.0); PLATELET COUNT 185 x10e3/uL (140-360); RED BLOOD COUNT 4.15 x10e6/uL (4.3-5.7); RED CELL DISTRIBUTION WIDTH 13.9 % (11.7-14.4)
[2021-01-16 11:15] LABS: ALBUMIN 3.7 g/dL (3.5-5.0); ALBUMIN/GLOBULIN RATIO 0.7 (0.8-2.0); CALCIUM 9.4 mg/dL (8.4-10.2); CREATININE, SERUM 1.51 mg/dL (0.72-1.25)
[2021-01-16 11:44] LABS: CREATINE KINASE MB 75.6 ng/mL (0-5.0)
[2021-01-16] MEDS ORDERED: SODIUM CHLORIDE 0.9% 1000ML 1,000 ML IV ONE (11:45)
[2021-01-16] MEDS ORDERED: SODIUM CHLORIDE 0.9% 50ML 50 ML ONE (13:31)
[2021-01-16] MEDS ORDERED: IOPAMIDOL 370 MG/ML 200 ML INFUS..BTL INJ ONE (13:31)
[2021-01-16 16:03] VITALS: BP 134/78
== END 2021-01-16 16:06 | disposition other institution (70) ==
LOC: ER 10:31
DX: R10.13 Epigastric pain (principal); I10 Essential (primary) hypertension; E78.5 Hyperlipidemia, unspecified; Z20.822 Contact with and (suspected) exposure to COVID-19; F17.210 Nicotine dependence, cigarettes, uncomplicated
CPT/HCPCS: 36415; 74177; 80053; 82550; 82553; 83690; 84484; 85025; 93005; 99284; C9113; J7030; Q9967; U0002

== ENCOUNTER 2021-10-08 12:28 | Inpatient (IN) | payer BC ==
[~2021-10-08] VITALS: Ht 190.5 cm; Wt 102.1 kg
[2021-10-08] MEDS ORDERED: FUROSEMIDE INJ 10 MG/ML 4 ML VIAL IV ONE (13:00)
[2021-10-08 13:04] LABS: BASOPHILS # (AUTO) 0.1 (0.0-0.1); BASOPHILS % 1.5 % (0.0-1.0); EOSINOPHILS # (AUTO) 0.2 (0.0-0.4); EOSINOPHILS % 2.8 % (0.0-6.0); HEMATOCRIT 43.9 % (38.2-49.6); LYMPHOCYTES # (AUTO) 1.4 (1.0-3.2); LYMPHOCYTES % 23.3 % (18.0-39.1); MEAN CORPUSCULAR HEMOGLOBIN 31.3 pg (28-32); MEAN CORPUSCULAR HGB CONC 31.9 g/dL (31-35); MONOCYTES # (AUTO) 0.6 (0.2-0.8); MONOCYTES % 10.6 % (4.4-11.3); NEUTROPHILS # (AUTO) 3.7 (2.1-6.9); NEUTROPHILS % 61.6 % (38.7-80.0); PLATELET COUNT 124 x10e3/uL (140-360); RED BLOOD COUNT 4.48 x10e6/uL (4.3-5.7); RED CELL DISTRIBUTION WIDTH 14.1 % (11.7-14.4)
[2021-10-08 13:15] LABS: INR 1.19; PROTHROMBIN TIME 16.1 seconds (11.9-14.5)
[2021-10-08 13:16] LABS: PARTIAL THROMBOPLASTIN TIME 30.5 seconds (23.8-35.5)
[2021-10-08 13:25] LABS: ALANINE AMINOTRANSFERASE 19 IU/L (0-55); ALBUMIN 3.3 g/dL (3.5-5.0); ALBUMIN/GLOBULIN RATIO 0.6 (0.8-2.0); ALKALINE PHOSPHATASE 96 IU/L (40-150); ANION GAP 16.2 mmol/L (8-16); BLOOD UREA NITROGEN 16 mg/dL (7-26); BUN/CREATININE RATIO 10 (6-25); CARBON DIOXIDE 24 mmol/L (22-29); CHLORIDE 105 mmol/L (98-107); CREATINE KINASE 37 IU/L (30-200); CREATININE, SERUM 1.61 mg/dL (0.72-1.25); EST GLOMERULAR FILTRATION RATE 44 ML/MIN (60-); GLUCOSE 117 mg/dL (74-118); POTASSIUM 4.2 mmol/L (3.5-5.1); SODIUM 141 mmol/L (136-145)
[2021-10-08] MEDS: FUROSEMIDE INJ 10 MG/ML 4 ML VIAL IV SCH (14:54)
[2021-10-08 15:00] VITALS: BP 151/98
[2021-10-08 16:00] VITALS: BP 151/98
[2021-10-08] MEDS ORDERED: LEVOTHYROXINE50 MCG PO (17:14)
[2021-10-08] MEDS ORDERED: ASPIRIN81 MG PO (17:14)
[2021-10-08] MEDS ORDERED: METOPROLOL ER PO (17:14)
[2021-10-08] MEDS ORDERED: VIIBRYD1 EAC1 PO (17:14)
[2021-10-08] MEDS ORDERED: LIPITOR20 MG PO (17:14)
[2021-10-08] MEDS ORDERED: FERROUS SULFAT325 MG PO (17:14)
[2021-10-08] MEDS ORDERED: ENTRESTO 24 MG1 EACH PO (17:14)
[2021-10-08] MEDS ORDERED: FUROSEMIDE40 MG PO (17:14)
[2021-10-08] MEDS ORDERED: ELIQUIS2.5 MG PO (17:14)
[2021-10-08 17:39] VITALS: BP 140/90
[2021-10-08] MEDS: APIXAB 2.5 MG TABLET PO SCH (18:17)
[2021-10-08 19:42] LABS: CREATINE KINASE 33 IU/L (30-200)
[2021-10-08 20:00] VITALS: BP 140/96
[2021-10-08 21:00] VITALS: BP 140/96
[2021-10-08] MEDS: VILAZODONE HCL 40 MG PO SCH (21:00)
[2021-10-08] MEDS: ATORVASTATIN 20 MG TAB PO SCH (21:20)
[2021-10-08] MEDS: METOPROLOL SUCCINATE 50 MG TAB XL PO SCH (21:20)
[2021-10-09] VITALS (7 sets, daily range): BP systolic 107–152; BP diastolic 48–97
[2021-10-09] MEDS: LEVOTHYROXINE SODIUM 50 MCG TAB PO SCH (05:48)
[2021-10-09 06:48] LABS: ANION GAP 11.6 mmol/L (8-16); CALCIUM 8.3 mg/dL (8.4-10.2); CREATININE, SERUM 1.54 mg/dL (0.72-1.25); POTASSIUM 3.6 mmol/L (3.5-5.1)
[2021-10-09 07:20] LABS: CREATINE KINASE MB 1.3 ng/mL (0-5.0)
[2021-10-09 07:33] LABS: THYROID STIMULATING HORMONE 1.959 uIU/mL (0.350-4.940)
[2021-10-09] MEDS: FERROUS SULFATE 325 MG TAB PO SCH ×2 (09:48→17:11)
[2021-10-09] MEDS: FUROSEMIDE INJ 10 MG/ML 4 ML VIAL IV SCH ×2 (09:48→17:11)
[2021-10-09] MEDS: VALSARTAN/SACUBITRIL 24MG/26MG 1 EA TAB PO SCH ×2 (09:48→17:11)
[2021-10-09] MEDS: ASPIRIN 81 MG CHEW TAB PO SCH (09:48)
[2021-10-09] MEDS: APIXAB 2.5 MG TABLET PO SCH ×2 (09:48→17:11)
[2021-10-09] MEDS: VILAZODONE HCL 40 MG PO SCH (21:00)
[2021-10-09] MEDS: ATORVASTATIN 20 MG TAB PO SCH (22:15)
[2021-10-09] MEDS: METOPROLOL SUCCINATE 50 MG TAB XL PO SCH (22:15)
[2021-10-10] VITALS: BP 146/98
[2021-10-10 02:08] VITALS: BP 146/98
[2021-10-10 04:00] VITALS: BP 127/91
[2021-10-10] MEDS: LEVOTHYROXINE SODIUM 50 MCG TAB PO SCH (05:52)
[2021-10-10 08:37] VITALS: BP 129/86
[2021-10-10] MEDS: FERROUS SULFATE 325 MG TAB PO SCH (09:36)
[2021-10-10] MEDS: FUROSEMIDE INJ 10 MG/ML 4 ML VIAL IV SCH (09:36)
[2021-10-10] MEDS: ASPIRIN 81 MG CHEW TAB PO SCH (09:36)
[2021-10-10] MEDS: APIXAB 2.5 MG TABLET PO SCH (09:36)
[2021-10-10] MEDS: VALSARTAN/SACUBITRIL 24MG/26MG 1 EA TAB PO SCH (09:36)
[2021-10-10 10:06] VITALS: BP 129/86
[2021-10-10 11:50] VITALS: BP 123/91
== END 2021-10-10 13:00 | disposition home or self-care (01) | DRG 291 ==
LOC: ER 12:33 → ERHOLD 13:37 → MED/SURG3 14:36
PROVIDERS: ADMIT Internal Medicine; ATTEND Internal Medicine
DX: I13.0 Hypertensive heart and chronic kidney disease with heart failure and stage 1 through stage 4 chronic kidney disease, or unspecified chronic kidney disease (principal); I50.23 Acute on chronic systolic (congestive) heart failure; N18.30 Chronic kidney disease, stage 3 unspecified; I25.10 Atherosclerotic heart disease of native coronary artery without angina pectoris; Z95.810 Presence of automatic (implantable) cardiac defibrillator; Z20.822 Contact with and (suspected) exposure to COVID-19; Z87.891 Personal history of nicotine dependence; Z88.5 Allergy status to narcotic agent; J44.9 Chronic obstructive pulmonary disease, unspecified; M19.90 Unspecified osteoarthritis, unspecified site; I42.9 Cardiomyopathy, unspecified; D69.6 Thrombocytopenia, unspecified; F41.9 Anxiety disorder, unspecified; R06.00 Dyspnea, unspecified; Z95.1 Presence of aortocoronary bypass graft; Z79.82 Long term (current) use of aspirin; Z79.899 Other long term (current) drug therapy
CPT/HCPCS: 36415; 71045; 80048; 80053; 82550; 82553; 83735; 83880; 84443; 84484; 85025; 85610; 85730; 93005; 93306; 94799; 99284; J1940; U0002

== ENCOUNTER 2022-12-21 13:52 | Inpatient (IN) | payer BC ==
[~2022-12-21] VITALS: Ht 190.5 cm; Wt 115.7 kg
[~2022-12-21 13:52] MED LIST changes: +ASPIRIN81 MG PO; +ELIQUIS2.5 MG PO; +ENTRESTO 24 MG1 EACH PO; +FERROUS SULFAT325 MG PO; +FUROSEMIDE40 MG PO; +LEVOTHYROXINE50 MCG PO; +LIPITOR20 MG PO; +METOPROLOL ER PO; +VIIBRYD1 EAC1 PO
[2022-12-21 14:43] LABS: BASOPHILS # (AUTO) 0.1 (0.0-0.1); BASOPHILS % 0.7 % (0.0-1.0); EOSINOPHILS # (AUTO) 0.2 (0.0-0.4); EOSINOPHILS % 2.5 % (0.0-6.0); HEMATOCRIT 34.1 % (38.2-49.6); HEMOGLOBIN 11.4 g/dL (14.0-18.0); LYMPHOCYTES # (AUTO) 1.4 (1.0-3.2); LYMPHOCYTES % 14.3 % (18.0-39.1); MEAN CORPUSCULAR HEMOGLOBIN 32.7 pg (28-32); MEAN CORPUSCULAR HGB CONC 33.4 g/dL (31-35); MEAN CORPUSCULAR VOLUME 97.7 fL (81-99); MONOCYTES # (AUTO) 0.7 (0.2-0.8); MONOCYTES % 7.3 % (4.4-11.3); NEUTROPHILS # (AUTO) 7.1 (2.1-6.9); NEUTROPHILS % 74.8 % (38.7-80.0); PLATELET COUNT 194 x10e3/uL (140-360); RED BLOOD COUNT 3.49 x10e6/uL (4.3-5.7); RED CELL DISTRIBUTION WIDTH 14.5 % (11.7-14.4)
[2022-12-21 14:58] LABS: ALBUMIN 2.9 g/dL (3.5-5.0); ALBUMIN/GLOBULIN RATIO 0.7 (0.8-2.0); ANION GAP 18.3 mmol/L (8-16); CALCIUM 8.7 mg/dL (8.4-10.2); CREATININE, SERUM 2.47 mg/dL (0.72-1.25); POTASSIUM 5.3 mmol/L (3.5-5.1)
[2022-12-21] MEDS ORDERED: LACTATED RINGER'S 1,000 ML INJ ONE (15:15)
[2022-12-21] MEDS ORDERED: DICYCLOMINE HCL 20 MG/2 ML VIAL IM ONE (15:15)
[2022-12-21] MEDS ORDERED: SODIUM CHLORIDE 0.9% 1000ML 1,000 ML IV SCH (15:30)
[2022-12-21] MEDS ORDERED: DONNATAL/LIDOCAINE/MAALOX 30 ML SUSP PO STA (16:58)
[2022-12-21 17:16] VITALS: PULSE 71; RESP 20; O2SAT 98
[2022-12-21 20:00] VITALS: BP 130/62; PULSE 89; RESP 17; TEMP 97.6; O2SAT 97
[2022-12-21 21:20] VITALS: BP 130/62; PULSE 89; RESP 17; TEMP 98.6; O2SAT 96
[2022-12-21] MEDS: SODIUM CHLORIDE 0.9% 1000ML 1,000 ML IV SCH (21:36)
[2022-12-22] VITALS (11 sets, daily range): BP systolic 127–144; BP diastolic 89–106; PULSE 77–95; RESP 17–20; TEMP 97.2–98.6; O2SAT 95–98
[2022-12-22] MEDS ORDERED: MELATONIN 5 MG TABLET PO PRN (00:15)
[2022-12-22] MEDS ORDERED: DOCUSATE SODIUM 100 MG CAP PO PRN (00:15)
[2022-12-22] MEDS ORDERED: SIMETHICONE 80 MG CHEW PO PRN (00:15)
[2022-12-22] MEDS ORDERED: ONDANSETRON HCL INJ 2MG/ML 2ML 2 MG/ML VIAL IV PRN (00:15)
[2022-12-22] MEDS ORDERED: BENZONATATE 100 MG CAP PO PRN (00:15)
[2022-12-22] MEDS ORDERED: ACETAMINOPHEN 325 MG TAB PO PRN (00:15)
[2022-12-22] MEDS ORDERED: ALBUTEROL/IPRATROPIUM 3 ML NEB NEB PRN (00:15)
[2022-12-22] MEDS ORDERED: LIDOCAINE 4% PATCH TP PRN (00:15)
[2022-12-22] MEDS ORDERED: POTASSIUM CHLORIDE 20 MEQ TAB CR PO PRN (00:15)
[2022-12-22] MEDS ORDERED: HYDRALAZINE HCL 20 MG/ML VIAL IV PRN (00:15)
[2022-12-22] MEDS ORDERED: DEXTROSE 50% SYRINGE 50 ML IV PRN (00:15)
[2022-12-22] MEDS ORDERED: DIPHENHYDRAMINE HCL 25 MG CAP PO PRN (00:15)
[2022-12-22] MEDS: SODIUM CHLORIDE 0.9% 1000ML 1,000 ML IV SCH ×4 (05:24→20:39)
[2022-12-22] MEDS ORDERED: PANTOPRAZOLE SOD 40 MG TABEC PO SCH (07:30)
[2022-12-22 08:08] LABS: BASOPHILS # (AUTO) 0.1 (0.0-0.1); EOSINOPHILS # (AUTO) 0.2 (0.0-0.4); HEMATOCRIT 35.4 % (38.2-49.6); HEMOGLOBIN 10.9 g/dL (14.0-18.0); LYMPHOCYTES # (AUTO) 1.2 (1.0-3.2); LYMPHOCYTES % 14.6 % (18.0-39.1); MEAN CORPUSCULAR HEMOGLOBIN 32.1 pg (28-32); MEAN CORPUSCULAR HGB CONC 30.8 g/dL (31-35); MEAN CORPUSCULAR VOLUME 104.1 fL (81-99); MONOCYTES # (AUTO) 0.6 (0.2-0.8); MONOCYTES % 7.5 % (4.4-11.3); NEUTROPHILS % 73.5 % (38.7-80.0); PLATELET COUNT 170 x10e3/uL (140-360); RED CELL DISTRIBUTION WIDTH 14.5 % (11.7-14.4)
[2022-12-22 08:17] LABS: ANION GAP 13.6 mmol/L (8-16); CALCIUM 8.2 mg/dL (8.4-10.2); CREATININE, SERUM 2.21 mg/dL (0.72-1.25); POTASSIUM 5.6 mmol/L (3.5-5.1)
[2022-12-22 08:18] LABS: CHOL/HDL RATIO 4.9 (3.9-4.7); MAGNESIUM 2.4 MG/DL (1.3-2.1); PHOSPHORUS 2.6 MG/DL (2.3-4.7)
[2022-12-22 08:42] LABS: THYROID STIMULATING HORMONE 2.532 uIU/mL (0.350-4.940)
[2022-12-22] MEDS ORDERED: SOD POLYSTYRENE SULFONATE SUSP 15 GM/60 ML BTL PO ONE (09:45)
[2022-12-22] MEDS ORDERED: FUROSEMIDE INJ 10 MG/ML 4 ML VIAL IV ONE (09:45)
[2022-12-22] MEDS: SUCRALFATE 1 GM/10 ML SUSP NG SCH ×2 (16:30→20:39)
[2022-12-22] MEDS: PANTOPRAZOLE SOD 40 MG TABEC PO SCH (16:30)
[2022-12-22] MEDS: ENOXAPARIN SOD INJ 40 MG/0.4 ML SYR SC SCH (16:31)
[2022-12-22 17:29] LABS: CALCIUM 8.3 mg/dL (8.4-10.2); CREATININE, SERUM 2.09 mg/dL (0.72-1.25)
[2022-12-22] MEDS: TRAZODONE HCL 50 MG TAB PO PRN (20:39)
[2022-12-22 23:15] LABS: % IRON SATURATION 21 % (15-50); IRON 67 ug/dL (65-175); TOTAL IRON BINDING CAPACITY 316 ug/dL (261-478); TRANSFERRIN 226 mg/dL (174-364)
[2022-12-23] VITALS (10 sets, daily range): BP systolic 135–152; BP diastolic 90–99; PULSE 85–98; RESP 18–20; TEMP 97.3–98; O2SAT 95–98
[2022-12-23] MEDS ORDERED: CYANOCOBALAMIN INJ 1,000 MCG/ML VIAL IM ONE (00:15)
[2022-12-23 08:25] LABS: BASOPHILS # (AUTO) 0.1 (0.0-0.1); EOSINOPHILS # (AUTO) 0.3 (0.0-0.4); EOSINOPHILS % 4.2 % (0.0-6.0); HEMATOCRIT 33.5 % (38.2-49.6); HEMOGLOBIN 10.8 g/dL (14.0-18.0); LYMPHOCYTES # (AUTO) 1.1 (1.0-3.2); LYMPHOCYTES % 17.9 % (18.0-39.1); MEAN CORPUSCULAR HEMOGLOBIN 31.7 pg (28-32); MEAN CORPUSCULAR HGB CONC 32.2 g/dL (31-35); MEAN CORPUSCULAR VOLUME 98.2 fL (81-99); MONOCYTES # (AUTO) 0.6 (0.2-0.8); MONOCYTES % 10.7 % (4.4-11.3); NEUTROPHILS # (AUTO) 3.9 (2.1-6.9); NEUTROPHILS % 65.9 % (38.7-80.0); PLATELET COUNT 167 x10e3/uL (140-360); RED BLOOD COUNT 3.41 x10e6/uL (4.3-5.7); RED CELL DISTRIBUTION WIDTH 14.2 % (11.7-14.4)
[2022-12-23 08:36] LABS: CALCIUM 8.3 mg/dL (8.4-10.2); CREATININE, SERUM 1.87 mg/dL (0.72-1.25)
[2022-12-23] MEDS: SUCRALFATE 1 GM/10 ML SUSP NG SCH ×4 (09:01→20:40)
[2022-12-23] MEDS: PANTOPRAZOLE SOD 40 MG TABEC PO SCH ×2 (09:01→16:53)
[2022-12-23] MEDS: CYANOCOBALAMIN INJ 1,000 MCG/ML VIAL IM SCH (09:01)
[2022-12-23] MEDS: SODIUM CHLORIDE 0.9% 1000ML 1,000 ML IV SCH (09:03)
[2022-12-23] MEDS ORDERED: METOPROLOL SUCCINATE 50 MG TAB XL PO ONE (14:45)
[2022-12-23] MEDS: ENOXAPARIN SOD INJ 40 MG/0.4 ML SYR SC SCH (16:54)
[2022-12-23] MEDS: TRAZODONE HCL 50 MG TAB PO PRN (20:40)
[2022-12-23] MEDS ORDERED: ATORVASTATIN 40 MG TAB PO SCH (21:00)
[2022-12-24] VITALS (8 sets, daily range): BP systolic 103–123; BP diastolic 70–88; PULSE 70–82; RESP 16–21; TEMP 97.3–98.3; O2SAT 96–100
[2022-12-24 05:37] LABS: BASOPHILS # (AUTO) 0.1 (0.0-0.1); BASOPHILS % 1.2 % (0.0-1.0); EOSINOPHILS # (AUTO) 0.3 (0.0-0.4); HEMATOCRIT 35.5 % (38.2-49.6); HEMOGLOBIN 11.2 g/dL (14.0-18.0); LYMPHOCYTES # (AUTO) 1.3 (1.0-3.2); LYMPHOCYTES % 16.8 % (18.0-39.1); MEAN CORPUSCULAR HEMOGLOBIN 32.1 pg (28-32); MEAN CORPUSCULAR HGB CONC 31.5 g/dL (31-35); MEAN CORPUSCULAR VOLUME 101.7 fL (81-99); MONOCYTES # (AUTO) 0.8 (0.2-0.8); MONOCYTES % 10.1 % (4.4-11.3); NEUTROPHILS # (AUTO) 5.1 (2.1-6.9); NEUTROPHILS % 67.1 % (38.7-80.0); PLATELET COUNT 165 x10e3/uL (140-360); RED BLOOD COUNT 3.49 x10e6/uL (4.3-5.7); RED CELL DISTRIBUTION WIDTH 14.5 % (11.7-14.4)
[2022-12-24 05:46] LABS: INR 0.9; PROTHROMBIN TIME 12.6 seconds (11.9-14.5)
[2022-12-24 05:59] LABS: ALBUMIN 2.6 g/dL (3.5-5.0); ALBUMIN/GLOBULIN RATIO 0.6 (0.8-2.0); CALCIUM 8.6 mg/dL (8.4-10.2); CHOL/HDL RATIO 5.4 (3.9-4.7); CREATININE, SERUM 1.86 mg/dL (0.72-1.25)
[2022-12-24] MEDS ORDERED: LEVOTHYROXINE SODIUM 50 MCG TAB PO SCH (06:00)
[2022-12-24 06:55] LABS: THYROID STIMULATING HORMONE 3.478 uIU/mL (0.350-4.940)
[2022-12-24] MEDS: SUCRALFATE 1 GM/10 ML SUSP NG SCH ×3 (07:30→16:08)
[2022-12-24] MEDS ORDERED: FUROSEMIDE 40 MG TAB PO SCH (09:00)
[2022-12-24] MEDS: PANTOPRAZOLE SOD 40 MG TABEC PO SCH ×2 (09:00→16:08)
[2022-12-24] MEDS: CYANOCOBALAMIN INJ 1,000 MCG/ML VIAL IM SCH (09:12)
[2022-12-24] MEDS ORDERED: ONDANSETRON HCL 4 MG ORAL DISINTEGRATING TAB PO PRN (13:00)
[2022-12-24] MEDS ORDERED: ATORVASTATIN CA40 MG PO (14:36)
[2022-12-24] MEDS ORDERED: PANTOPRAZOLE SO40 MG PO (14:36)
[2022-12-24] MEDS ORDERED: CARAFATE1 GM PO (14:37)
[2022-12-24] MEDS ORDERED: ATORVASTATIN CA20 MG PO (14:50)
[2022-12-24] MEDS ORDERED: LASIX20 MG PO (14:52)
[2022-12-24] MEDS ORDERED: METOPROLOL SUCC50 MG PO (14:52)
[2022-12-24] MEDS ORDERED: FUROSEMIDE INJ 10 MG/ML 4 ML VIAL IV ONE (15:00)
[2022-12-24] MEDS: ENOXAPARIN SOD INJ 40 MG/0.4 ML SYR SC SCH (16:08)
[2022-12-25] MEDS ORDERED: METOPROLOL SUCCINATE 50 MG TAB XL PO SCH (09:00)
== END 2022-12-24 18:15 | disposition home or self-care (01) | DRG 384 ==
LOC: ER 14:04 → ERHOLD 17:01 → MED/SURG3 20:00 → OBSVTOIN 12-24 09:47
PROVIDERS: ADMIT Internal Medicine; ATTEND Internal Medicine
PROC: 0DB68ZX Excision of Stomach, Via Natural or Artificial Opening Endoscopic, Diagnostic (ICD-10-PCS; principal; 2022-12-24 12:50)
DX: K25.9 Gastric ulcer, unspecified as acute or chronic, without hemorrhage or perforation (principal); N17.9 Acute kidney failure, unspecified; I13.0 Hypertensive heart and chronic kidney disease with heart failure and stage 1 through stage 4 chronic kidney disease, or unspecified chronic kidney disease; I50.22 Chronic systolic (congestive) heart failure; K44.9 Diaphragmatic hernia without obstruction or gangrene; I25.10 Atherosclerotic heart disease of native coronary artery without angina pectoris; F41.9 Anxiety disorder, unspecified; I25.2 Old myocardial infarction; E87.5 Hyperkalemia; E78.00 Pure hypercholesterolemia, unspecified; N18.32 Chronic kidney disease, stage 3b; F17.210 Nicotine dependence, cigarettes, uncomplicated; K76.0 Fatty (change of) liver, not elsewhere classified; E03.9 Hypothyroidism, unspecified; E86.0 Dehydration; D63.1 Anemia in chronic kidney disease; K20.90 Esophagitis, unspecified without bleeding; Z20.822 Contact with and (suspected) exposure to COVID-19; Z95.1 Presence of aortocoronary bypass graft; Z95.810 Presence of automatic (implantable) cardiac defibrillator; Z79.82 Long term (current) use of aspirin; Z79.01 Long term (current) use of anticoagulants; Z86.73 Personal history of transient ischemic attack (TIA), and cerebral infarction without residual deficits; Z91.148 Patient's other noncompliance with medication regimen for other reason
CPT/HCPCS: 36415; 43239; 71045; 76705; 80048; 80053; 80061; 82607; 82746; 83036; 83540; 83690; 83735; 84100; 84132; 84443; 84466; 84484; 85025; 85045; 85610; 88304; 88305; 88312; 88342; 93005; 93306; 94799; 99284; G0378; J1650; J1940; J3420; J7030